=== PATIENT | female | born 1975 | race Caucasian/White ===

== ENCOUNTER 2021-12-16 11:25 | Emergency (ER) | payer MEDICAID ==
[~2021-12-16] VITALS: Ht 175.3 cm; Wt 65.0 kg
[2021-12-16] MEDS ORDERED: LEVETIRACETAM 500MG TABLET PO ONE (11:45)
[2021-12-16 14:14] LABS: CHLORIDE 106 mEq/L (98-107)
[2021-12-16 14:34] LABS: BASOPHILS % 0.3 % (0.0-2.0); EOSINOPHILS % 3.7 % (0.0-5.0); HEMATOCRIT. 42.2 % (36.0-48.0); HEMOGLOBIN. 13.6 g/dL (12.0-16.0); LYMPHOCYTES % 23.5 % (20.0-50.0); MEAN CORPUSCULAR VOLUME 83.5 fL (81.0-99.0); MONOCYTES % 9.6 % (2.0-8.0); NEUTROPHILS % 62.9 % (40.0-76.0); PLATELET 393 x1000/uL (130-400); RED BLOOD CELL COUNT 5.05 mill/uL (4.2-5.4); RED CELL DISTRIBUTION WIDTH 14.8 % (11.6-14.6)
[2021-12-16 18:00] VITALS: BP 134/93
[2021-12-16] MEDS ORDERED: ACETAMINOPHEN 325MG TABLET PO ONE (18:15)
== END 2021-12-16 19:11 ==
LOC: ER 11:25
DX: R07.89 Other chest pain (principal); S09.90XA Unspecified injury of head, initial encounter; R56.9 Unspecified convulsions; I10 Essential (primary) hypertension; Z88.8 Allergy status to other drugs, medicaments and biological substances; W18.30XA Fall on same level, unspecified, initial encounter; Y93.89 Activity, other specified; Y92.89 Other specified places as the place of occurrence of the external cause; Y99.8 Other external cause status
CPT/HCPCS: 36415; 71045; 80053; 84484; 85025; 99285